=== PATIENT | male | born 1975 | race Caucasian/White ===

== ENCOUNTER 2016-10-26 06:46 | Day surgery (SDC) | payer OTHER ==
[~2016-10-26] VITALS: Ht 182.9 cm; Wt 61.2 kg
[~2016-10-26 06:46] MED LIST: BACTRIM,SEPT1 TABLET PO; CEFDINIR300 MG PO; ILOTYCIN1 GM LEFT EYE; KEFLEX500 MG PO; NAPROSYN500 MG PO; NORCO 5/3251 TABLET PO
[2016-10-26 07:33] VITALS: BP 106/64
[2016-10-26] MEDS ORDERED: NORCO 5/3251 TABLET PO (10:25)
[2016-10-26 12:05] VITALS: BP 89/55
[2016-10-26 13:05] VITALS: BP 90/58
== END 2016-10-26 13:16 | disposition home or self-care (01) ==
LOC: SDC
PROC: 0WQF4ZZ Repair Abdominal Wall, Percutaneous Endoscopic Approach (ICD-10-PCS; principal; 2016-10-26)
DX: J45.909 Unspecified asthma, uncomplicated (principal); F17.210 Nicotine dependence, cigarettes, uncomplicated; Z83.3 Family history of diabetes mellitus; Z88.0 Allergy status to penicillin; F12.90 Cannabis use, unspecified, uncomplicated
CPT/HCPCS: C1781; J0330; J1100; J1170; J1885; J2250; J2405; J2710; J3010; J3370

== ENCOUNTER 2017-09-25 01:44 | Inpatient (IN) | payer OTHER ==
[2017-09-25] VITALS (23 sets, daily range): BP systolic 90–128; BP diastolic 64–87
[~2017-09-25] VITALS: Ht 182.9 cm; Wt 62.3 kg
[2017-09-25 02:08] LABS: HEMATOCRIT 51.6 % (38.0-50.0); HEMOGLOBIN 17.7 G/DL (12.5-16.6); MCH 32.2 PG (29.0-34.0); MCHC 34.3 G/DL (30.0-36.0); PLATELET COUNT 356 K/uL (156-360); RBC DIS.WIDTH-CV 13.5 % (11.8-14.6); RBC DIS.WIDTH-SD 47.2 % (39-53); RED BLOOD COUNT 5.49 M/uL (4.00-5.50); WHITE BLOOD COUNT 12.3 K/uL (4.1-10.2)
[2017-09-25 02:15] LABS: CHLORIDE 106 mEq/L (99-109); POTASSIUM 4.1 mEq/L (3.7-5.4); SODIUM 144 mEq/L (136-147)
[2017-09-25 02:17] LABS: GLUCOSE 92 mg/dL (70-99)
[2017-09-25 02:21] LABS: CREATININE 0.9 mg/dL (0.6-1.3); GFR ESTIMATE (CALCULATED) > 59 mL/min/ (58.99-99999)
[2017-09-25 02:22] LABS: UREA NITROGEN (BUN) 14 mg/dL (9-23)
[2017-09-25 02:25] LABS: TROP-I INTERPRETATION NEGATIVE; TROPONIN-I < 0.01 ng/mL (0.0-0.30)
[2017-09-25 07:17] LABS: HDL CHOLESTEROL 44 MG/DL (Desirable>=40); LDL CHOLESTEROL 100 mg/dL (Desirable<100); NON-HDL CHOLESTEROL 120 mg/dL (Desirable<160); TOTAL CHOLESTEROL 164 mg/dL (Desirable<200); TRIGLYCERIDES 100 MG/DL (Normal: <150)
[2017-09-25 07:32] LABS: TROP-I INTERPRETATION POSITIVE; TROPONIN-I 83.79 ng/mL (0.0-0.30)
[2017-09-25 07:37] LABS: TOTAL CK 2417 IU/L (1-294)
[2017-09-25 07:41] LABS: CREATINE KINASE 2417 IU/L (1-294)
[2017-09-25 08:02] LABS: CK-MB 246.5 ng/mL (0.0-4.9); CKMB RELATIVE INDEX 10.2 (0.0-3.9)
[2017-09-25 09:28] LABS: HEMOGLOBIN A1c (GLYCOHEMOGLOB) 5.6 % (Below 5.7)
[2017-09-25 19:39] LABS: TROP-I INTERPRETATION POSITIVE; TROPONIN-I 58.68 ng/mL (0.0-0.30)
[2017-09-25 19:53] LABS: TOTAL CK 1280 IU/L (1-294)
[2017-09-25 20:05] LABS: CREATINE KINASE 1280 IU/L (1-294)
[2017-09-25 20:16] LABS: CK-MB 135.4 ng/mL (0.0-4.9); CKMB RELATIVE INDEX 10.6 (0.0-3.9)
[2017-09-26] VITALS (11 sets, daily range): BP systolic 93–110; BP diastolic 66–79
[2017-09-26 05:42] LABS: CREATINE KINASE 797 IU/L (1-294); TOTAL CK 797 IU/L (1-294)
[2017-09-26 05:42] LABS: CHLORIDE 108 MEQ/L (99-109); CREATININE 0.7 MG/DL (0.6-1.3); GFR ESTIMATE (CALCULATED) > 59 mL/min/ (58.99-99999); GLUCOSE 89 mg/dL (70-99); SODIUM 137 MEQ/L (136-147); UREA NITROGEN (BUN) 7 mg/dL (9-23)
[2017-09-26 05:50] LABS: BASOPHIL (%) 0.4 % (0-1); BASOPHIL COUNT 0.1 K/uL (0-0.1); EOSINOPHIL (%) 2.8 % (0-5); EOSINOPHIL COUNT 0.3 K/uL (0-0.3); HEMATOCRIT 44.8 % (38.0-50.0); IMMATURE GRANULOCYTE (%) 0.3 % (0.0-0.7); LYMPHOCYTE (%) 31.3 % (15-42); LYMPHOCYTE COUNT 3.6 K/uL (1.0-2.8); MCH 30.8 PG (29.0-34.0); MCHC 33.7 G/DL (30.0-36.0); MCV 91.4 FL (86-99); MONOCYTE (%) 8.4 % (3-12); NEUTROPHIL (%) 56.8 % (45-76); NEUTROPHIL COUNT 6.5 K/uL (1.8-6.4); PLATELET COUNT 321 K/uL (156-360); RBC DIS.WIDTH-CV 13.4 % (11.8-14.6); RBC DIS.WIDTH-SD 45.9 % (39-53); WHITE BLOOD COUNT 11.4 K/uL (4.1-10.2)
[2017-09-26 05:54] LABS: HEMOGLOBIN 15.1 G/DL (12.5-16.6)
[2017-09-26 06:00] LABS: TROP-I INTERPRETATION POSITIVE; TROPONIN-I 31.66 ng/mL (0.0-0.30)
[2017-09-26 06:31] LABS: CK-MB 52.4 ng/mL (0.0-4.9); CKMB RELATIVE INDEX 6.6 (0.0-3.9)
[2017-09-26] MEDS ORDERED: ATORVASTATIN CA40 MG PO (10:31)
[2017-09-26] MEDS ORDERED: ASPIRIN325 MG PO (10:31)
[2017-09-26] MEDS ORDERED: NITROSTAT0.4 MG SL (10:31)
[2017-09-26] MEDS ORDERED: METOPROLOL SUCC25 MG PO (10:31)
[2017-09-26] MEDS ORDERED: LISINOPRIL2.5 MG PO (10:31)
[2017-09-26] MEDS ORDERED: PLAVIX75 MG PO (10:31)
[2017-09-26] MEDS ORDERED: NICOTINE PATCH1 EAC2 TD (10:31)
== END 2017-09-26 12:40 | disposition home or self-care (01) | DRG 249 ==
LOC: EME 01:44 → CATH 03:06 → ENRESERV 03:13 → 4WEST 04:09
PROVIDERS: Internal Medicine Interventional Cardiology
DX: I21.21 ST elevation (STEMI) myocardial infarction involving left circumflex coronary artery (principal); F17.210 Nicotine dependence, cigarettes, uncomplicated; Z88.0 Allergy status to penicillin; Z91.09 Other allergy status, other than to drugs and biological substances; Z71.6 Tobacco abuse counseling; F12.90 Cannabis use, unspecified, uncomplicated; I25.10 Atherosclerotic heart disease of native coronary artery without angina pectoris
CPT/HCPCS: 71046; 80048; 80061; 82550; 82550 91; 82553; 83036; 84484; 85025; 85027; 85347; 87641; 93005; 94799; 99281; 99285; C1725; C1769; C1874; C1887; J0153; J1644; J2250; J3010; J7030